=== PATIENT | female | born 1995 | race Caucasian/White ===

== ENCOUNTER 2020-11-24 11:44 | Outpatient (CLI) | payer BC, SELFPAY ==
--- NOTE | ~2020-11-24 | US_ITS ---
EXAMINATION: US right upper quadrant EXAM DATE: 11/24/2020 12:15 INDICATION: Abnormal liver enzymes. TECHNIQUE: Multiple grayscale and Doppler images of the abdomen right upper quadrant were obtained (kody y a technologist who performed the scan) and subsequently reviewed. There is no prior study for jasmina palmer. FINDINGS: The pancreatic head and body are normal in appearance. The pancreatic tail is not visualized. The l iver has normal echogenicity and contour. There are no focal liver lesions identified. There is no evidence of intrahepatic biliary duct dilation. Portal venous flow was seen in the hepatopedal, nor mal direction and has normal Doppler waveform. No right-sided hydronephrosis. Common bile duct measures 5 mm, which is normal. The gallbladder wall is normal in thickness, with ex pected amount of distention. No sonographic evidence of pericholecystic fluid. There is no cholelit hiases. Technologist performing exam reports patient did not demonstrate sonographic Coyne's sign. Please note that this sign is less reliable in patients who have received pain medication. IMPRESSION: 1. Unremarkable abdominal ultrasound exam. Reviewed, dictated and finalized at location A.
== END 2020-11-24 11:45 | disposition home or self-care (01) ==
PROVIDERS: PCP Internal Medicine; Visit Provider Internal Medicine
DX: R74.8 Abnormal levels of other serum enzymes (principal)
CPT/HCPCS: 76705

== ENCOUNTER 2020-11-26 12:29 | Emergency (ER) | payer BC, SELFPAY ==
[2020-11-26 12:32] VITALS: PULSE 104; RESP 18; TEMP 36.2; O2SAT 98
[2020-11-26 12:45] VITALS: BP 103/71; PULSE 95; RESP 16; O2SAT 98
--- NOTE | 2020-11-26 12:55 | PC.NURSE ---
Pt A&Ox4 and wanting to leave prior to see EDP. Pt states she is feeling much better and already has a doctors appointment set for monday and she would rather follow up with him. Pt signed AMA paper and ambulated out of department with all belongings.
== END 2020-11-26 12:55 | disposition left against medical advice (07) ==
LOC: ANHED 13:16
PROVIDERS: PCP Internal Medicine
DX: R42 Dizziness and giddiness (principal)
CPT/HCPCS: 99199

== ENCOUNTER 2021-11-07 15:32 | Emergency (ER) | payer BC, SELFPAY ==
--- NOTE | 2021-11-07 15:45 | PC.NURSE ---
Patient decided not to be seen in the ED after initial registration. Patient request to share room with other adult patient (friend) and told that we do not have two adults share rooms for evaluation. patient then decided not to be seen and to just be a visitor.
== END 2021-11-08 04:20 | disposition left against medical advice (07) ==
PROVIDERS: PCP Internal Medicine
DX: Z53.21 Procedure and treatment not carried out due to patient leaving prior to being seen by health care provider (principal)
CPT/HCPCS: 99199